=== PATIENT | female | born 1995 | race Two or more races ===

== ENCOUNTER 2018-03-12 19:12 | Emergency (ER) | payer SELFPAY ==
--- NOTE | 2018-03-12 20:08 | ER Document Report ---
ED Medical Screen (RME) - General Chief Complaint: High Blood Pressure Stated Complaint: HIGH BLOOD PRESSURE Time Seen by Provider: 03/12/18 19:54 Notes: RAPID MEDICAL EVALUATION DISCLOSURE I have seen this patient as part of a Rapid Medical Evaluation and, if applicable, placed any initially appropriate orders. The patient will be seen and fully evaluated, including a full history and physical exam, by a provider ( in Main ED or Fast Track) when a room becomes available. 22-year-old female sent over from the clinic for high blood pressure. She states that it was in the 170s when they checked it there. Here it is in the 190s. She has no symptoms whatsoever and reports that she feels completely normal. She has no prior history of high blood pressure nor does she have a formal diagnosis of such. However it does run in her family. EXAM CTAB RRR TRAVEL OUTSIDE OF THE [place] IN LAST 30 DAYS: No - Related Data Allergies/Adverse Reactions: No Known Allergies Allergy (Verified 03/12/18 19:58) Past Medical History - Social History Chew tobacco use (# tins/day): No Frequency of alcohol use: Social Drug Abuse: None Pulmonary Medical History: Reports: Hx Asthma Renal/ Medical History: Denies: Hx Peritoneal Dialysis Physical Exam - Vital signs Vitals: Temp Pulse Resp BP Pulse Ox 97.6 F 108 H 20 192/130 H 98 03/12/18 19:18 03/12/18 19:18 03/12/18 19:18 03/12/18 19:18 03/12/18 19:18 Course - Vital Signs Vital signs: Temp Pulse Resp BP Pulse Ox 97.6 F 108 H 20 192/130 H 98 03/12/18 19:18 03/12/18 19:18 03/12/18 19:18 03/12/18 19:18 03/12/18 19:18
[2018-03-12 20:38] LABS: ABSOLUTE BASOPHILS # (AUTO) 0.1 10^3/uL (0.0-0.2); ABSOLUTE EOSINOPHILS # (AUTO) 0.2 10^3/uL (0.0-0.6); ABSOLUTE LYMPHOCYTES (AUTO) 2.4 10^3/uL (0.5-4.7); ABSOLUTE MONOCYTES (AUTO) 0.7 10^3/uL (0.1-1.4); ABSOLUTE NEUT (AUTO) 8.4 10^3/uL (1.7-8.2); BASOPHILS % (AUTO) 0.6 % (0-2); EOSINOPHILS % (AUTO) 1.4 % (0-6); HEMATOCRIT 27.9 % (36.0-47.0); HEMOGLOBIN 8.2 g/dL (12.0-15.5); LYMPHOCYTES % (AUTO) 20.6 % (13-45); MEAN CORPUSCULAR HEMOGLOBIN 15.7 pg (27.0-33.4); MEAN CORPUSCULAR HGB CONC 29.4 g/dL (32.0-36.0); MONOCYTES % (AUTO) 5.9 % (3-13); PLATELET COUNT 276 10^3/uL (150-450); RED BLOOD COUNT 5.21 10^6/uL (3.72-5.28); RED CELL DISTRIBUTION WIDTH 22.5 % (11.5-14.0); SEGMENTED NEUTROPHILS % (AUTO) 71.5 % (42-78); TOTAL CELLS COUNTED % (AUTO) 100 %; WHITE BLOOD COUNT 11.7 10^3/uL (4.0-10.5)
[2018-03-12 20:39] LABS: APPEARANCE,URINE CLEAR; BILIRUBIN,URINE NEGATIVE (NEGATIVE); COLOR,URINE YELLOW; GLUCOSE, URINE NEGATIVE (NEGATIVE); KETONES,URINE NEGATIVE (NEGATIVE); LEUKOCYTE ESTERASE,URINE NEGATIVE (NEGATIVE); NITRITE,URINE NEGATIVE (NEGATIVE); PROTEIN,URINE NEGATIVE (NEGATIVE); URINE SPECIFIC GRAVITY 1.017; UROBILINOGEN,URINE NEGATIVE mg/dL (<2.0)
[2018-03-12 20:42] LABS: INTERNATIONAL RATION (INR) 0.99; PROTHROMBIN TIME 13.6 SEC (11.4-15.4)
[2018-03-12 20:43] LABS: FIBRINOGEN 394 mg/dL (209-497); PARTIAL THROMBOPLASTIN TIME 32.1 SEC (23.5-35.8)
[2018-03-12 20:55] LABS: ALANINE AMINOTRANSFERASE 30 U/L (9-52); ALBUMIN 4.5 g/dL (3.5-5.0); ALKALINE PHOSPHATASE 69 U/L (38-126); ANION GAP 13 (5-19); ASPARTATE AMINO TRANSFERASE 37 U/L (14-36); BILIRUBIN,DIRECT 0.3 mg/dL (0.0-0.4); BILIRUBIN,TOTAL 0.3 mg/dL (0.2-1.3); BLOOD UREA NITROGEN 12 mg/dL (7-20); CALCIUM 8.9 mg/dL (8.4-10.2); CARBON DIOXIDE 25 mmol/L (22-30); CHLORIDE 104 mmol/L (98-107); GLUCOSE 91 mg/dL (75-110); HYPOCHROMASIA 2+; LIPASE 158.4 U/L (23-300); POTASSIUM 4.2 mmol/L (3.6-5.0); SODIUM 142.1 mmol/L (137-145); TOTAL PROTEIN 8.1 g/dL (6.3-8.2); TOXIC GRANULATION SLIGHT
[2018-03-12 20:56] LABS: ANISOCYTOSIS 3+; MEAN CORPUSCULAR VOLUME 54 fl (80-97); OVALOCYTES SLIGHT; PLATELET COMMENT ADEQUATE; POIKILOCYTOSIS 2+
[2018-03-12] MEDS ORDERED: LABETALOL HCL 200 MG TABLET PO ONE (21:30)
--- NOTE | 2018-03-12 21:33 | ER Document Report ---
ED General - General Chief Complaint: High Blood Pressure Stated Complaint: HIGH BLOOD PRESSURE Time Seen by Provider: 03/12/18 19:54 Mode of Arrival: Ambulatory Information source: Patient Notes: 22-year-old female presents with complaints of high blood pressure. Patient notes she [facility] because she found that she is , while there her blood pressure was noted to be elevated, she notes previous similar high elevation a few years ago but never had it worked up or start medications. Patient does note that she has been craving ice for a long time Patient denies any heavy bleeding from anywhere denies any weakness dizziness lightheadedness TRAVEL OUTSIDE OF THE [place] IN LAST 30 DAYS: No - HPI Onset: Other Onset/Duration: Intermittent Quality of pain: No pain Severity: Mild Pain Level: Denies Associated symptoms: Other Exacerbated by: Denies Relieved by: Denies Similar symptoms previously: No Recently seen / treated by doctor: Yes - Related Data Allergies/Adverse Reactions: No Known Allergies Allergy (Verified 03/12/18 19:58) Past Medical History - Social History Smoking Status: Current Some Day Smoker Cigarette use (# per day): Yes Chew tobacco use (# tins/day): No Smoking Education Provided: Yes - Patient counselled regarding cessation for 4 minutes Frequency of alcohol use: Social Drug Abuse: None Family History: Reviewed & Not Pertinent Patient has suicidal ideation: No Patient has homicidal ideation: No Pulmonary Medical History: Reports: Hx Asthma Renal/ Medical History: Denies: Hx Peritoneal Dialysis Review of Systems - Review of Systems Notes: REVIEW OF SYSTEMS: CONSTITUTIONAL : Denies fever, chills, or sweats. Denies recent illness. Admits to hypertension EENT: Denies eye, ear, throat, or mouth pain or symptoms. Denies nasal or sinus congestion or discharge. Denies throat, tongue, or mouth swelling or difficulty swallowing. CARDIOVASCULAR: Denies chest pain. Denies palpitations or racing or irregular heart beat. Denies ankle edema. RESPIRATORY: Denies cough, cold, or chest congestion. Denies shortness of breath, difficulty breathing, or wheezing. GASTROINTESTINAL: Denies abdominal pain or distention. Denies nausea, vomiting , or diarrhea. Denies blood in vomitus, stools, or per rectum. Denies black, tarry stools. Denies constipation. GENITOURINARY: Denies difficulty urinating, painful urination, burning, frequency, blood in urine, or discharge. FEMALE GENITOURINARY: Denies vaginal bleeding, heavy or abnormal periods, irregular periods. Denies vaginal discharge or odor. MUSCULOSKELETAL: Denies back or neck pain or stiffness. Denies joint pain or swelling. SKIN: Denies rash, lesions or sores. HEMATOLOGIC : Denies easy bruising or bleeding. LYMPHATIC: Denies swollen, enlarged glands. NEUROLOGICAL: Denies confusion or altered mental status. Denies passing out or loss of consciousness. Denies dizziness or lightheadedness. Denies headache. Denies weakness or paralysis or loss of use of either side. Denies problems with gait or speech. Denies sensory loss, numbness, or tingling. Denies seizures. PSYCHIATRIC: Denies anxiety or stress. Denies depression, suicidal ideation, or homicidal ideation. ALL OTHER SYSTEMS REVIEWED AND NEGATIVE. PHYSICAL EXAMINATION: GENERAL: Well-appearing, well-nourished and in no acute distress. Hypertensive HEAD: Atraumatic, normocephalic. EYES: Pupils equal round and reactive to light, extraocular movements intact, conjunctiva are normal. ENT: Nares patent, oropharynx clear without exudates. Moist mucous membranes. NECK: Normal range of motion, supple without lymphadenopathy LUNGS: Breath sounds clear to auscultation bilaterally and equal. No wheezes rales or rhonchi. HEART: Regular rate and rhythm without murmurs ABDOMEN: Soft, nontender, nondistended abdomen. No guarding, no rebound. No masses appreciated. Female : deferred Musculoskeletal: Normal range of motion, no pitting or edema. No cyanosis. NEUROLOGICAL: Cranial nerves grossly intact. Normal speech, normal gait. Normal sensory, motor exams PSYCH: Normal mood, normal affect. SKIN: Warm, Dry, normal turgor, no rashes or lesions noted. Dictation was performed using [employer] voice recognition software Physical Exam - Vital signs Vitals: Temp Pulse Resp BP Pulse Ox 97.6 F 108 H 20 192/130 H 98 03/12/18 19:18 03/12/18 19:18 03/12/18 19:18 03/12/18 19:18 03/12/18 19:18 Course - Re-evaluation Re-evalutation: 03/12/18 21:[address] Rizvi, he suggest labetolol, it is cat c but notes risks and benefits given htn, pt also is on vit 27 but will need more iron , he states they will follow and if patient needs will get infusion for iron 03/12/18 23:56 Patient's hemoglobin is 8.2 will write for iron, patient's ultrasound is still not back, the patient insisted that she leave prior to this result, I have contacted [facility] and requested that radiology partners read to imaging sooner After performing a Medical Screening Examination, I estimate there is LOW risk for INTRACRANIAL HEMORRHAGE, ISCHEMIC CVA, MALIGNANT DYSRHYTHMIA, ACUTE CORONARY SYNDROME, MENINGITIS, PULMONARY EMBOLISM, or SEPSIS thus I consider the discharge disposition reasonable. I have reevaluated this patient multiple times and no significant life threatening changes are noted. The patient and I have discussed the diagnosis and risks, and we agree with discharging home with close follow-up with the understanding that symptoms and presentations can change. We also discussed returning to the Emergency Department immediately if new or worsening symptoms occur. We have discussed the symptoms which are most concerning (e.g., changing or worsening pain, weakness, vomiting, fever) that necessitate immediate return. - Vital Signs Vital signs: Temp Pulse Resp BP Pulse Ox 97.5 F 87 18 156/98 H 98 03/12/18 22:39 03/12/18 22:39 03/12/18 22:39 03/12/18 22:39 03/12/18 22:39 - Laboratory Result Diagrams: 03/12/18 20:18 03/12/18 20:18 Laboratory results interpreted by me: 03/12/18 03/12/18 20:18 20:18 WBC 11.7 H Hgb 8.2 L Hct 27.9 L MCV 54 L MCH 15.7 L MCHC 29.4 L RDW 22.5 H Absolute Neutrophils 8.4 H AST 37 H Beta HCG, Quant 6061.00 H - Diagnostic Test Radiology reviewed: Image reviewed, Reports reviewed Critical Care Note - Critical Care Note Total time excluding time spent on procedures (mins): 55 Comments: 55 minutes of critical care time spent in direct contact evaluating and reevaluating the patient, treating symptoms, reviewing labs and studies and speaking with family and consultants excluding any procedures Discharge - Discharge Clinical Impression: Hypertension Qualifiers: Hypertension type: essential hypertension Qualified Code(s): I10 - Essential ( primary) hypertension Qualifiers: Weeks of gestation: less than 8 weeks Qualified Code(s): Z3A.01 - Less than 8 weeks gestation of Anemia Qualifiers: Anemia type: iron deficiency Iron deficiency anemia type: unspecified iron deficiency Qualified Code(s): D50.9 - Iron deficiency anemia, unspecified Condition: Stable Disposition: HOME, SELF-CARE Instructions: High Blood Pressure, Requiring Treatment ([facility]) Prescriptions: Ferrous Sulfate [Iron] 325 mg PO DAILY #30 tablet Labetalol HCl 200 mg PO DAILY #30 tablet Referrals: VILMA RIZVI MD [ACTIVE STAFF] - Follow up tomorrow
[2018-03-12 23:20] VITALS: BP 156/98
--- NOTE | 2018-03-13 00:05 | RADIOLOGY REPORT (SQ) ---
EXAM DESCRIPTION: CLINICAL HISTORY: 22 years Female + COMPARISON: None. TECHNIQUE: Transvaginal duplex imaging performed to evaluate the pelvis. FINDINGS: Uterus measures 8.8 x 4.8 cm. Cervix measures 2.6 cm. There is trace fluid in the endocervical canal. There is a small intrauterine gestational sac corresponding to five weeks five days. No pole is noted. Neither ovary is identified. No free fluid is seen. IMPRESSION: Intrauterine gestational sac corresponding to five weeks five days without pole noted. Findings are consistent with of uncertain viability. Recommend follow-up in one week
[2018-03-16 09:01] LABS: PATH REVIEW PATHOLOGIST REVIEWED
== END 2018-03-12 23:20 | disposition home or self-care (01) ==
LOC: ER 19:12
DX: O16.1 Unspecified maternal hypertension, first trimester (principal); O99.331 Smoking (tobacco) complicating pregnancy, first trimester; Z3A.01 Less than 8 weeks gestation of pregnancy
CPT/HCPCS: 36415; 76817; 80053; 81001; 83690; 84702; 85025; 85384; 85610; 85730; 99285; 99406

== ENCOUNTER 2018-08-11 15:18 | Emergency (ER) | payer MEDICAID ==
--- NOTE | 2018-08-11 16:12 | ER Document Report ---
ED Blood Pressure Problem - General Chief Complaint: High Blood Pressure Stated Complaint: BLOOD PRESSURE ISSUES Time Seen by Provider: 08/11/18 15:35 Notes: 23-year-old female patient emergency department chief complaint of shortness of breath. Patient has a previous history remarkable for hypertension. Was taking labetalol but ran out of the prescription. Began having some shortness of breath while at work. Someone took her blood pressure and noted to be extremely high. EMS was notified. Patient transported here in no acute distress. Denies any chest pain at this time. No recent weight gain or weight loss. TRAVEL OUTSIDE OF THE [place] IN LAST 30 DAYS: No - HPI Patient complains to provider of: High blood pressure Onset/Duration: Gradual Severity: None Associated symptoms: Other - Shortness of breath - Related Data Allergies/Adverse Reactions: No Known Allergies Allergy (Verified 08/11/18 15:47) Past Medical History - General Information source: Patient - Social History Smoking Status: Smoker,Current Status Unk Drug Abuse: None Lives with: Family Family History: Reviewed & Not Pertinent - Past Medical History Cardiac Medical History: Reports: Hx Hypertension Pulmonary Medical History: Reports: Hx Asthma Renal/ Medical History: Denies: Hx Peritoneal Dialysis Review of Systems - Review of Systems Notes: Constitutional: denies: Chills, Diaphoresis, Fever, Malaise, Weakness EENT: denies: Eye discharge, Blurred vision, Tearing, Double vision, Nose congestion, Nose discharge, Throat swelling, Mouth pain Cardiovascular: denies: Palpitations, Heart racing, Orthopnea, Dyspnea, Chest pain. History of hypertension Respiratory: denies: Cough, Hurts to breathe, Wheezing, does have some mild shortness of breath Gastrointestinal: denies: Abdominal pain, Diarrhea, Nausea, Vomiting, Black stools, bright red blood in stool Genitourinary: denies: Burning, Dysuria, Discharge, Frequency, Flank pain, Hematuria Musculoskeletal: denies: Joint pain, Joint swelling, Muscle pain, Muscle stiffness, back pain Hematologic/Lymphatic: denies: Anemia, Easy bleeding, Easy bruising, Blood clots Neurological/Psychological: denies: Confusion, Dementia, Depression, Loss of consciousness Skin: No lesions, no masses, no skin breakdown, no abscesses Physical Exam - Vital signs Vitals: Pulse Ox 100 08/11/18 15:35 Interpretation: Normal - General General appearance: Appears well, Alert - HEENT Head: Normocephalic, Atraumatic Eyes: Normal Pupils: PERRL - Respiratory Respiratory status: No respiratory distress Chest status: Nontender Breath sounds: Normal Chest palpation: Normal - Cardiovascular Rhythm: Regular Heart sounds: Normal auscultation Murmur: No - Abdominal Inspection: Normal Distension: No distension Bowel sounds: Normal Tenderness: Nontender Organomegaly: No organomegaly - Back Back: Normal, Nontender - Extremities General upper extremity: Normal inspection, Nontender, Normal color, Normal ROM , Normal temperature General lower extremity: Normal inspection, Nontender, Normal color, Normal ROM , Normal temperature, Normal weight bearing. No: Jacky's sign - Neurological Neuro grossly intact: Yes Cognition: Normal Orientation: AAOx4 Tati Coma Scale Eye Opening: Spontaneous Sumner Coma Scale Verbal: Oriented [place]ner Coma Scale Motor: Obeys Commands Tati Coma Scale Total: 15 Speech: Normal Motor strength normal: LUE, RUE, LLE, RLE Sensory: Normal - Psychological Associated symptoms: Normal affect, Normal mood - Skin Skin Temperature: Warm Skin Moisture: Dry Skin Color: Normal Course - Re-evaluation Re-evalutation: 08/11/18 16:59 Is a pleasant well-appearing 23-year-old female with hypertension. Patient is of [place] dissent. Strong family history of hypertension. No wheezing at this time. No significant decrease in breath sounds. Ordering a basic labs at this time. Blood pressure still extremely elevated at 180/120. Will give some labetalol as well as some losartan. Patient has been on labetalol and tolerated it well in the past. 08/11/18 17:03 Laboratory 08/11/18 08/11/18 08/11/18 13:41 13:41 13:41 WBC 8.5 RBC 5.39 H Hgb 12.0 Hct 37.2 MCV 69 L MCH 22.2 L MCHC 32.2 RDW 18.3 H Plt Count 286 Seg Neutrophils % 67.6 Lymphocytes % 24.8 Monocytes % 5.1 Eosinophils % 1.9 Basophils % 0.6 Absolute Neutrophils 5.8 Absolute Lymphocytes 2.1 Absolute Monocytes 0.4 Absolute Eosinophils 0.2 Absolute Basophils 0.1 Sodium 141.7 Potassium 3.9 Chloride 104 Carbon Dioxide 25 Anion Gap 13 BUN 12 Creatinine 0.83 Est GFR ( Amer) > 60 Est GFR (Non-Af Amer) > 60 Glucose 99 Calcium 8.9 Total Bilirubin 0.5 Direct Bilirubin 0.3 Neonat Total Bilirubin Not Reportable Neonat Direct Bilirubin Not Reportable Neonat Indirect Bili Not Reportable AST 26 ALT 41 Alkaline Phosphatase 81 Creatine Kinase 122 CK-MB (CK-2) 0.46 Troponin I < 0.012 NT-Pro-B Natriuret Pep 88 Total Protein 7.9 Albumin 4.3 Serum HCG, Qual 08/11/18 13:41 WBC RBC Hgb Hct MCV MCH MCHC RDW Plt Count Seg Neutrophils % Lymphocytes % Monocytes % Eosinophils % Basophils % Absolute Neutrophils Absolute Lymphocytes Absolute Monocytes Absolute Eosinophils Absolute Basophils Sodium Potassium Chloride Carbon Dioxide Anion Gap BUN Creatinine Est GFR ( Amer) Est GFR (Non-Af Amer) Glucose Calcium Total Bilirubin Direct Bilirubin Neonat Total Bilirubin Neonat Direct Bilirubin Neonat Indirect Bili AST ALT Alkaline Phosphatase Creatine Kinase CK-MB (CK-2) Troponin I NT-Pro-B Natriuret Pep Total Protein Albumin Serum HCG, Qual NEGATIVE Chest X-Ray 08/11/18 16:13 IMPRESSION: NO ACUTE RADIOGRAPHIC FINDING IN THE CHEST. No evidence of end organ damage. Chest x-ray unremarkable. No sign of congestive heart failure. No elevated cardiac troponin. Normal BNP. Likely long-standing hypertension. - Vital Signs Vital signs: Temp Pulse Resp BP Pulse Ox 98.3 F 19 167/118 H 100 08/11/18 15:50 08/11/18 17:20 08/11/18 17:20 08/11/18 17:20 - Laboratory Result Diagrams: 08/11/18 13:41 08/11/18 13:41 Laboratory results interpreted by me: 08/11/18 08/11/18 13:41 17:01 RBC 5.39 H MCV 69 L MCH 22.2 L RDW 18.3 H Urine Protein 30 H - EKG Interpretation by Tn EKG shows normal: Sinus rhythm, Intervals, QRS Complexes, ST-T Waves Eddy/QRS: Left axis deviation Voltage: Consistant with LVH Discharge - Discharge Clinical Impression: Hypertension Qualifiers: Hypertension type: unspecified Qualified Code(s): I10 - Essential (primary) hypertension Condition: Good Disposition: HOME, SELF-CARE Instructions: High Blood Pressure, Requiring Treatment ([facility]) Additional Instructions: At this time we have hypertension. This needs to be treated. 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 In the event you develop any worsening symptoms or concerns please return immediately for repeat evaluation. Prescriptions: Losartan/Hydrochlorothiazide [Losartan-Hctz 50-12.5 mg Tab] 1 each PO DAILY 2 Days #30 tablet Forms: Return to Work Referrals: AKSHAT JAVED MD [ACTIVE STAFF] - Follow up in 3-5 days
[2018-08-11 16:21] LABS: ABSOLUTE BASOPHILS # (AUTO) 0.1 10^3/uL (0.0-0.2); ABSOLUTE EOSINOPHILS # (AUTO) 0.2 10^3/uL (0.0-0.6); ABSOLUTE LYMPHOCYTES (AUTO) 2.1 10^3/uL (0.5-4.7); ABSOLUTE MONOCYTES (AUTO) 0.4 10^3/uL (0.1-1.4); ABSOLUTE NEUT (AUTO) 5.8 10^3/uL (1.7-8.2); BASOPHILS % (AUTO) 0.6 % (0-2); EOSINOPHILS % (AUTO) 1.9 % (0-6); HEMATOCRIT 37.2 % (36.0-47.0); LYMPHOCYTES % (AUTO) 24.8 % (13-45); MEAN CORPUSCULAR HEMOGLOBIN 22.2 pg (27.0-33.4); MEAN CORPUSCULAR HGB CONC 32.2 g/dL (32.0-36.0); MEAN CORPUSCULAR VOLUME 69 fl (80-97); MONOCYTES % (AUTO) 5.1 % (3-13); PLATELET COUNT 286 10^3/uL (150-450); RED BLOOD COUNT 5.39 10^6/uL (3.72-5.28); RED CELL DISTRIBUTION WIDTH 18.3 % (11.5-14.0); SEGMENTED NEUTROPHILS % (AUTO) 67.6 % (42-78); TOTAL CELLS COUNTED % (AUTO) 100 %; WHITE BLOOD COUNT 8.5 10^3/uL (4.0-10.5)
[2018-08-11 16:28] LABS: ALANINE AMINOTRANSFERASE 41 U/L (9-52); ALBUMIN 4.3 g/dL (3.5-5.0); ALKALINE PHOSPHATASE 81 U/L (38-126); ANION GAP 13 (5-19); ASPARTATE AMINO TRANSFERASE 26 U/L (14-36); BILIRUBIN,DIRECT 0.3 mg/dL (0.0-0.4); BILIRUBIN,TOTAL 0.5 mg/dL (0.2-1.3); BLOOD UREA NITROGEN 12 mg/dL (7-20); CALCIUM 8.9 mg/dL (8.4-10.2); CARBON DIOXIDE 25 mmol/L (22-30); CHLORIDE 104 mmol/L (98-107); CREATINE KINASE 122 U/L (30-135); GLUCOSE 99 mg/dL (75-110); POTASSIUM 3.9 mmol/L (3.6-5.0); SODIUM 141.7 mmol/L (137-145); TOTAL PROTEIN 7.9 g/dL (6.3-8.2)
[2018-08-11 16:39] LABS: CREATINE KINASE MB 0.46 ng/mL (<4.55); NT PRO BNP 88 pg/mL (<125)
[2018-08-11] MEDS ORDERED: LOSARTAN POTASSIUM 25 MG TABLET PO ONE (16:39)
[2018-08-11] MEDS ORDERED: LABETALOL HCL INJ 20 MG/4 ML DISP.SYRIN IV ONE (16:39)
[2018-08-11 16:42] LABS: TROPONIN I < 0.012 ng/mL
--- NOTE | 2018-08-11 16:50 | RADIOLOGY REPORT (SQ) ---
EXAM DESCRIPTION: CHEST SINGLE VIEW COMPLETED DATE/TIME: 08/11/2018 4:32 pm REASON FOR STUDY: sob COMPARISON: None. EXAM PARAMETERS: NUMBER OF VIEWS: One view. TECHNIQUE: Single frontal radiographic view of the chest acquired. RADIATION DOSE: NA LIMITATIONS: None. FINDINGS: LUNGS AND PLEURA: No opacities, masses or pneumothorax. No pleural effusion. MEDIASTINUM AND HILAR STRUCTURES: No masses. Contour normal. HEART AND VASCULAR STRUCTURES: Heart normal in size. Normal vasculature. BONES: No acute findings. HARDWARE: None in the chest. OTHER: No other significant finding. IMPRESSION: NO ACUTE RADIOGRAPHIC FINDING IN THE CHEST. TECHNICAL DOCUMENTATION: JOB ID: [id number] [employer]- All Rights Reserved Reading location - IP/workstation name: [email or web address]
[2018-08-11 17:15] LABS: APPEARANCE,URINE SLIGHTLY-CLOUDY; BILIRUBIN,URINE NEGATIVE (NEGATIVE); COLOR,URINE COLORLESS; GLUCOSE, URINE NEGATIVE (NEGATIVE); KETONES,URINE NEGATIVE (NEGATIVE); LEUKOCYTE ESTERASE,URINE NEGATIVE (NEGATIVE); NITRITE,URINE NEGATIVE (NEGATIVE); PROTEIN,URINE 30 mg/dL (NEGATIVE); URINE SPECIFIC GRAVITY 1.008; UROBILINOGEN,URINE NEGATIVE mg/dL (<2.0)
[2018-08-11 17:48] VITALS: BP 164/111
--- NOTE | 2018-08-12 07:23 | EKG REPORT ---
SEVERITY:- ABNORMAL ECG - SINUS RHYTHM PROBABLE LEFT VENTRICULAR HYPERTROPHY BORDERLINE PROLONGED QT INTERVAL : Confirmed by: Pancho Nascimento 12-Aug-2018 07:22:47
== END 2018-08-11 17:59 | disposition home or self-care (01) ==
LOC: ER 15:18
DX: I10 Essential (primary) hypertension (principal); T44.8X6A Underdosing of centrally-acting and adrenergic-neuron-blocking agents, initial encounter; Z91.128 Patient's intentional underdosing of medication regimen for other reason; Z91.14 Patient's other noncompliance with medication regimen; J45.909 Unspecified asthma, uncomplicated; R06.02 Shortness of breath; Z82.49 Family history of ischemic heart disease and other diseases of the circulatory system
CPT/HCPCS: 93005; 99284; 96374; 36415; 82553; 82550; 84703; 85025; 80053; 81001; 84484; 83880; 71045; 93010; J3490